=== PATIENT | female | born 1995 | race Two or more races ===

== ENCOUNTER 2016-07-26 15:33 | Emergency (ER) | payer OTHER | END 2016-07-26 15:35 | disposition home or self-care (01) | LOC: ER 15:33 | DX: S29.012A Strain of muscle and tendon of back wall of thorax, initial encounter (principal); S39.012A Strain of muscle, fascia and tendon of lower back, initial encounter; S70.12XA Contusion of left thigh, initial encounter; V49.9XXA Car occupant (driver) (passenger) injured in unspecified traffic accident, initial encounter | CPT/HCPCS: 72072; 72100; 93005; 99284 ==